=== PATIENT | male | born 1970 | race Caucasian/White ===

== ENCOUNTER 2019-05-15 12:49 | Emergency (ER) | payer OTHER ==
[~2019-05-15] VITALS: Ht 175.3 cm; Wt 112.5 kg
[2019-05-15 13:10] VITALS: BP 125/92
--- NOTE | 2019-05-15 13:25 | NUR ---
PT FELL YESTERDAY ON THE DRIVE WAY. UNABLE TO BEND KNEE, REDNESS AND SWELLING TO KNEE NOTED. DENIES N/V/D; SKIN IS PINK/WARM/DRY; AAOX4 WITH EVEN AND STEADY GAIT; PT DENIES ANY FEVER, CP, SOB, OR COUGH AT THIS TIME; PATIENT STATES PAIN OF 5/10 AT THIS TIME; VSS; PATIENT POSITIONED FOR COMFORT; HOB ELEVATED; BEDRAILS UP X1; BED DOWN. ER MD MADE AWARE OF PT STATUS.
--- NOTE | 2019-05-15 13:44 | NUR ---
PT AMBULATED TO BED 04.
--- NOTE | 2019-05-15 14:13 | NUR ---
DR. SANCHEZ EVALUATING PATIENT AT BEDSIDE.
[2019-05-15] MEDS ORDERED: KETOROLAC 60 MG/2 ML VIAL IM ONE (14:25)
[2019-05-15] MEDS ORDERED: DEXAMETHASONE 10 MG/ML VIAL IM ONE (14:25)
--- NOTE | 2019-05-15 14:27 | NUR ---
railway signal technician at bedside.
[2019-05-15 15:31] VITALS: BP 119/84
--- NOTE | 2019-05-15 15:31 | NUR ---
Patient discharged with v/s stable. Written and verbal after care instructions given and explained. Patient alert, oriented and verbalized understanding of instructions. Ambulatory with device. All questions addressed prior to discharge. Patient advised to follow up with PMD. Rx of Voltaren given. Patient educated on indication of medication including possible reaction and side effects. Opportunity to ask questions provided and answered.
== END 2019-05-15 15:31 | disposition home or self-care (01) ==
LOC: MED 12:49
DX: M25.561 Pain in right knee (principal); M25.512 Pain in left shoulder; M25.511 Pain in right shoulder; I10 Essential (primary) hypertension; W19.XXXA Unspecified fall, initial encounter; Y93.89 Activity, other specified; Y92.89 Other specified places as the place of occurrence of the external cause; Y99.8 Other external cause status
CPT/HCPCS: 29505; 73562; 96372; 99283; J1100; J1885; Q0092

== ENCOUNTER 2019-06-08 10:38 | Emergency (ER) | payer OTHER ==
[~2019-06-08] VITALS: Ht 175.3 cm; Wt 117.0 kg
[2019-06-08 10:43] VITALS: BP 142/99
[2019-06-08] MEDS ORDERED: predniSONE 20 MG TAB PO ONE (11:05)
[2019-06-08] MEDS ORDERED: SULFAMETH/TRIMETH DS 800/160MG 1 TAB PO ONE (11:05)
[2019-06-08] MEDS ORDERED: CEPHALEXIN 500 MG CAP PO ONE (11:05)
[2019-06-08 11:16] VITALS: BP 142/99
== END 2019-06-08 11:15 | disposition home or self-care (01) ==
LOC: MED 10:38
DX: L03.115 Cellulitis of right lower limb (principal); E11.9 Type 2 diabetes mellitus without complications; I10 Essential (primary) hypertension; E78.5 Hyperlipidemia, unspecified
CPT/HCPCS: 99284; J7512